=== PATIENT | female | born 1995 | race African-American/Black ===

== ENCOUNTER 2023-02-07 05:55 | Emergency (ER) | payer SELFPAY ==
[2023-02-07 06:04] VITALS: BP 92/64; PULSE 100; RESP 18; TEMP 99.4; BMI 21.9
[2023-02-07 08:27] LABS: HEMATOCRIT 33.4 % (32.4-45.2); HEMOGLOBIN 11.2 GM/dL (10.7-15.3); MCH 28.9 pg (25.7-33.7); MCHC 33.6 g/dl (32.0-36.0); MEAN CELL VOLUME 86.1 fl (80-96); MEAN PLT VOLUME 8.9 fl (7.5-11.1); PLATELET COUNT 186 10^3/uL (134-434); RBC 3.88 M/mm3 (3.60-5.2); RDW 17.7 % (11.6-15.6); WHITE BLOOD COUNT 2.5 K/mm3 (4.0-10.0)
[2023-02-07 08:51] LABS: POTASSIUM 4.2 mmol/L (3.5-5.1)
[2023-02-07 08:53] LABS: ALBUMIN 3.5 g/dl (3.4-5.0); BLOOD UREA NITROGEN 7.8 mg/dL (7-18); CALCIUM 8.5 mg/dL (8.5-10.1)
[2023-02-07 08:56] LABS: CREATININE 0.6 mg/dL (0.55-1.3)
[2023-02-07 08:58] LABS: BILIRUBIN,TOTAL 0.2 mg/dL (0.2-1); TOT PROT 9.2 g/dl (6.4-8.2)
[2023-02-07 09:20] LABS: ANISOCYTOSIS 1+; MACROCYTOSIS 0
== END 2023-02-07 13:47 | disposition home or self-care (01) ==
LOC: JER 05:55
DX: J18.9 Pneumonia, unspecified organism (principal); R05.9 Cough, unspecified; R07.89 Other chest pain; Z20.822 Contact with and (suspected) exposure to COVID-19
CPT/HCPCS: 0241U-QW; 36415; 71046-TC-FY; 71275-TC; 80053; 84703; 85025; 85379; 93005; 93010; 99285-25; Q9967